=== PATIENT | female | born 1975 | race Caucasian/White ===

== ENCOUNTER 2016-11-01 12:50 | Emergency (ER) | payer OTHER ==
[~2016-11-01 12:50] MED LIST: DICLOFENAC PO; PARAFON FORTE500 M1; ROBAXIN PO; SYNTHROID
== END 2016-11-01 13:50 | disposition home or self-care (01) ==
LOC: CED 12:50 → CFTX 12:50
DX: J06.9 Acute upper respiratory infection, unspecified (principal); F17.210 Nicotine dependence, cigarettes, uncomplicated
CPT/HCPCS: 87651; 96372; 99283; J1885